=== PATIENT | female | born 1995 | race Hispanic/Latino ===

== ENCOUNTER 2019-01-03 13:53 | Emergency (ER) | payer MEDICAID ==
[~2019-01-03 13:53] MED LIST: PREN-196 PO
[2019-01-03 14:24] LABS: APPEARANCE,URINE Clear (CLEAR); BILIRUBIN,URINE Negative (NEGATIVE); COLOR,URINE Yellow (YELLOW); GLUCOSE, URINE (UA) Negative (NEGATIVE); KETONES,URINE Negative (NEGATIVE); LEUKOCYTE ESTERASE ,URINE Large (NEGATIVE); NITRATE,URINE Negative (NEGATIVE); OCCULT BLOOD,URINE Large (NEGATIVE); PROTEIN,URINE POS 1+ mg/dL (NEGATIVE)
[2019-01-03 14:34] LABS: HCG,QUAL RESULT POSITIVE (NEGATIVE)
[2019-01-03 15:00] LABS: BACTERIA,URINE Few /HPF (None Seen); MUCUS,URINE Few LPF (None Seen); WBC,URINE >100 /HPF (0-1)
== END 2019-01-03 15:18 | disposition home or self-care (01) ==
LOC: EDH 13:53
DX: O23.11 Infections of bladder in pregnancy, first trimester (principal); Z3A.00 Weeks of gestation of pregnancy not specified
CPT/HCPCS: 81001; 81025